=== PATIENT | male | born 1965 | race African-American/Black ===

== ENCOUNTER 2022-05-29 11:13 | Emergency (ER) | payer OTHER ==
[~2022-05-29] VITALS: Ht 180.3 cm; Wt 85.0 kg
[2022-05-29] MEDS ORDERED: ACETAMINOPHEN 325MG TABLET PO STA (11:54)
[2022-05-29] MEDS ORDERED: KETOROLAC 30MG/ML VIAL IV STA (11:54)
[2022-05-29] MEDS ORDERED: SODIUM CHLORIDE 0.9% 1,000 ML IV ONE (12:00)
[2022-05-29 12:22] VITALS: BP 114/73
[2022-05-29 12:28] LABS: HEMATOCRIT. 40.1 % (42.0-52.0); HEMOGLOBIN. 13.7 g/dL (14.0-18.0); MEAN CORPUSCULAR HEMOGLOBIN 29.8 pg (28.0-32.0); MEAN CORPUSCULAR VOLUME 87.2 fL (80.0-94.0); MEAN PLATELET VOLUME 8.4 fl (7.4-10.4); PLATELET 233 x1000/uL (130-400); RED CELL DISTRIBUTION WIDTH 13.8 % (11.6-14.6)
[2022-05-29 12:33] LABS: CHLORIDE 104 mEq/L (98-107)
[2022-05-29 12:40] LABS: PROTHROMBIN TIME 11.2 sec (9.6-11.0)
[2022-05-29 12:43] LABS: ETHANOL BLOOD < 10 mg/dL
[2022-05-29 12:52] LABS: PLATELET ESTIMATE NORMAL
[2022-05-29 13:42] LABS: CLARITY URINE CLEAR (CLEAR); COLOR URINE YELLOW (YELLOW); KETONES URINE NEGATIVE (NEGATIVE); LEUKOCYTE ESTERASE URINE NEGATIVE (NEGATIVE); NITRITE URINE NEGATIVE (NEGATIVE); OCCULT BLOOD URINE NEGATIVE (NEGATIVE); PH URINE 7.5 (4.5-8.0); PROTEIN URINE NEGATIVE (NEGATIVE); SPECIFIC GRAVITY URINE 1.015 (1.005-1.030)
[2022-05-29 14:23] LABS: *AMPHETAMINES SCREEN URINE NEGATIVE (NEGATIVE); *BARBITURATES SCREEN URINE NEGATIVE (NEGATIVE); *BENZODIAZEPINES SCREEN URINE NEGATIVE (NEGATIVE); *COCAINE SCREEN URINE NEGATIVE (NEGATIVE); CANNABINOID URINE SCREEN NEGATIVE (NEGATIVE); METHADONE URINE SCREEN NEGATIVE (NEGATIVE); OPIATES URINE SCREEN NEGATIVE (NEGATIVE); PHENCYCLIDINE URINE SCREEN NEGATIVE (NEGATIVE)
== END 2022-05-29 14:08 | disposition home or self-care (01) ==
LOC: ER 11:13
DX: R50.9 Fever, unspecified (principal); B34.9 Viral infection, unspecified; Z20.822 Contact with and (suspected) exposure to COVID-19
CPT/HCPCS: 36415; 71045; 80053; 80305; 80320; 81003; 85025; 85610; 87426; 87804; 96361; 96374; 99284; C9803; J1885; J7030; G0480